=== PATIENT | female | born 1975 | race Caucasian/White ===

== ENCOUNTER 2017-06-03 12:57 | Emergency (ER) | payer SELFPAY ==
[~2017-06-03] VITALS: Ht 172.7 cm; Wt 80.0 kg
[~2017-06-03 12:57] MED LIST: LEVO500T47 PO; METR500T PO; NO HOME MEDS
[2017-06-03 13:14] VITALS: BP 108/79
== END 2017-06-03 13:17 | disposition home or self-care (01) ==
LOC: ED 13:11
DX: K08.89 Other specified disorders of teeth and supporting structures (principal); F12.10 Cannabis abuse, uncomplicated; Z88.6 Allergy status to analgesic agent
CPT/HCPCS: 99283